=== PATIENT | female | born 1940 | race Caucasian/White ===

== ENCOUNTER 2024-08-13 10:31 | Inpatient (IN) | payer OTHER ==
[2024-08-13] MEDS ORDERED: ACETAMINOPHEN INJECTION 100 ML ONE (11:40)
[2024-08-13] MEDS: ACETAMINOPHEN 1000 MG/100 ML BAG IVPB ONE (11:52)
[2024-08-13] MEDS ORDERED: HALOPERIDOL LACTATE 5 MG/ML ONE (11:53)
[2024-08-13] MEDS: HALOPERIDOL LACTATE 5 MG/ML IM ONE ×2 (11:59→14:46)
[2024-08-13 12:03] LABS: HEMATOCRIT 39.6 % (32.4-45.2); HEMOGLOBIN 12.3 G/dL (10.7-15.3); MCHC 31.2 g/dl (32.0-36.0); MEAN CELL VOLUME 89.9 fl (80-96); MEAN PLT VOLUME 8.4 fl (7.5-11.1); PLATELET COUNT 360.8 10^3/uL (134-434); RDW 18.9 % (11.6-15.6); WHITE BLOOD COUNT 11.8 10^3/uL (4.0-10.8)
[2024-08-13] MEDS: SODIUM CHLORIDE 0.9% 1000 ML INFUS.BAG IV ONE (12:39)
[2024-08-13] MEDS ORDERED: MIDAZOLAM HCL 2 MG/2 ML SINGLE DOSE VIAL ONE (13:40)
[2024-08-13 13:44] LABS: INR 0.9 (0.83-1.09); PROTHROMBIN TIME (PATIENT) 10.3 SEC (9.7-13.0)
[2024-08-13 13:51] LABS: ACTIVATED PTT 31.2 SECONDS (25.2-36.5)
[2024-08-13 13:52] LABS: VENOUS BASE EXCESS 1.8 mmol/L (-2-2); VENOUS O2 SATURATION 75.9 % (70-80); VENOUS PCO2 47.3 mmHg (38-52); VENOUS PH 7.381 (7.310-7.410)
[2024-08-13 13:54] LABS: ALBUMIN 4.2 g/dl (3.4-5.0); BILIRUBIN,TOTAL 0.9 mg/dl (0.2-1); CALCIUM 9.1 mg/dl (8.5-10.1); CREATININE 0.8 mg/dl (0.6-1.3); POTASSIUM 4.4 mmol/L (3.5-5.1); TOT PROT 6.3 g/dl (6.4-8.2)
[2024-08-13] MEDS: MIDAZOLAM HCL 2 MG/2 ML SINGLE DOSE VIAL IVPUSH ONE ×2 (14:27→14:45)
[2024-08-13] MEDS ORDERED: INSULIN REGULAR HUMAN 100 UNITS/ML *VIAL ONE (14:42)
[2024-08-13] MEDS: INSULIN REGULAR HUMAN 100 UNITS/ML *VIAL SQ ONE (14:44)
[2024-08-13 14:45] LABS: LACTIC ACID 3.4 mmol/L (0.4-2.0)
[2024-08-13] MEDS: LACTATED RINGERS SOLUTION 1000 ML INFUS.BAG IV ONE (14:45)
[2024-08-13 14:51] LABS: PLATELET ESTIMATE ADEQUATE
[2024-08-13] MEDS: MEROPENEM 2 GM in SODIUM CHLORIDE 100 ML IVPB ONE (15:00)
[2024-08-13 16:51] LABS: LACTIC ACID 4.9 mmol/L (0.4-2.0)
[2024-08-13] MEDS: SODIUM CHLORIDE 1,000 ML IV SCH (19:55)
[2024-08-13 21:00] VITALS: BMI 26.2
[2024-08-13] MEDS: MUPIROCIN 2% TOPICAL OINTMENT FOR DECOLONIZATION NS SCH (22:29)
[2024-08-13] MEDS: CHLORHEXIDINE GLUCONATE 4% CLEANSER FOR DECOLONIZATION TP SCH (22:30)
[2024-08-13] MEDS: INSULIN ASPART SLIDING SCALE (NOVOLOG) 1 VIAL SQ SCH (22:35)
[2024-08-14 07:00] LABS: BASO % 0.8 % (0-2.0); EOS % 3.5 % (0-4.5); HEMATOCRIT 30.9 % (32.4-45.2); HEMOGLOBIN 9.9 GM/dL (10.7-15.3); LYMPH % 18.4 % (8-40); MCH 28.1 pg (25.7-33.7); MEAN CELL VOLUME 87.9 fl (80-96); MEAN PLT VOLUME 7.9 fl (7.5-11.1); MONO % 8.1 % (3.8-10.2); NEUT % 69.2 % (42.8-82.8); PLATELET COUNT 305 10^3/uL (134-434); RBC 3.52 M/mm3 (3.60-5.2); RDW 19.3 % (11.6-15.6); WHITE BLOOD COUNT 10.2 K/mm3 (4.0-10.0)
[2024-08-14 07:01] LABS: INR 1.02 (0.83-1.09); PROTHROMBIN TIME (PATIENT) 11.7 SEC (9.7-13.0)
[2024-08-14 07:03] LABS: ACTIVATED PTT 30.2 SECONDS (25.2-36.5)
[2024-08-14 07:12] LABS: CHLORIDE 99 mmol/L (98-107); POTASSIUM 4.9 mmol/L (3.5-5.1); SODIUM 137 mmol/L (136-145)
[2024-08-14 07:17] LABS: CALCIUM 8.5 mg/dL (8.5-10.1)
[2024-08-14 07:18] LABS: ALBUMIN 2.8 g/dl (3.4-5.0); ANION GAP 14 mmol/L (4-13); BLOOD UREA NITROGEN 23.2 mg/dL (7-18); CO2 24 mmol/L (21-32); GLUCOSE,RANDOM 373 mg/dL (74-106)
[2024-08-14 07:21] LABS: CREATININE 0.7 mg/dL (0.55-1.3); PHOSPHOROUS 3.6 mg/dL (2.5-4.9); SGOT/AST 10 U/L (15-37); SGPT/ALT 13 U/L (13-61)
[2024-08-14 07:22] LABS: BILIRUBIN,TOTAL 0.9 mg/dL (0.2-1)
[2024-08-14 07:23] LABS: ALK PHOS 77 U/L (45-117); TOT PROT 5.1 g/dl (6.4-8.2)
[2024-08-14] MEDS: ACETAMINOPHEN 1000 MG/100 ML BAG IVPB PRN (13:23)
[2024-08-14] MEDS: INSULIN (LEVEMIR) 100 UNITS/ML UNITS SQ SCH (22:03)
[2024-08-15 07:45] LABS: HEMATOCRIT 31.4 % (32.4-45.2); MCH 27.9 pg (25.7-33.7); MEAN CELL VOLUME 87.3 fl (80-96); MEAN PLT VOLUME 7.6 fl (7.5-11.1); PLATELET COUNT 362 10^3/uL (134-434); RBC 3.59 M/mm3 (3.60-5.2); RDW 19.4 % (11.6-15.6); WHITE BLOOD COUNT 10.2 K/mm3 (4.0-10.0)
[2024-08-15 08:07] LABS: CHLORIDE 107 mmol/L (98-107); POTASSIUM 4.1 mmol/L (3.5-5.1); SODIUM 142 mmol/L (136-145)
[2024-08-15 08:16] LABS: CALCIUM 8.4 mg/dL (8.5-10.1)
[2024-08-15 08:17] LABS: ANION GAP 6 mmol/L (4-13); BLOOD UREA NITROGEN 19.4 mg/dL (7-18); CO2 29 mmol/L (21-32); MAGNESIUM 2.1 mg/dL (1.8-2.4)
[2024-08-15 08:18] LABS: ALBUMIN 2.6 g/dl (3.4-5.0)
[2024-08-15 08:20] LABS: SGPT/ALT 13 U/L (13-61)
[2024-08-15 08:21] LABS: SGOT/AST 8 U/L (15-37)
[2024-08-15 08:22] LABS: BILIRUBIN,TOTAL 0.5 mg/dL (0.2-1); PHOSPHOROUS 3.1 mg/dL (2.5-4.9)
[2024-08-15 08:23] LABS: ALK PHOS 75 U/L (45-117)
[2024-08-15 08:25] LABS: CREATININE 0.5 mg/dL (0.55-1.3)
[2024-08-15 08:43] LABS: GLUCOSE,RANDOM 26 mg/dL (74-106)
[2024-08-15] MEDS ORDERED: DEXTROSE 50%-WATER 25 GM/50 ML DISP.SYRIN ONE (08:47)
[2024-08-15] MEDS: DEXTROSE 50%-WATER - 25 GM/50 ML VIAL IVPUSH ONE (08:50)
[2024-08-15] MEDS ORDERED: INSULIN (LEVEMIR) 100 UNITS/ML UNITS SQ SCH (10:00)
[2024-08-15] MEDS ORDERED: TAMSULOSIN HCL 0.4 MG CAP PO ONE (15:46)
[2024-08-16] MEDS: INSULIN (NOVOLOG) ASPART 100 UNITS/ML 10ML VIAL SQ ONE (00:11)
[2024-08-16] MEDS ORDERED: INSULIN ASPART SLIDING SCALE (NOVOLOG) 1 VIAL SQ SCH (07:00)
[2024-08-16] MEDS: INSULIN ASPART SLIDING SCALE (NOVOLOG) 1 VIAL SQ SCH (07:15)
[2024-08-16] MEDS ORDERED: DEXTROSE 50%-WATER 25 GM/50 ML DISP.SYRIN IVPUSH PRN (08:05)
[2024-08-16] MEDS ORDERED: FUROSEMIDE 40 MG TABLET (FP) PO SCH (10:00)
[2024-08-16] MEDS: INSULIN (LEVEMIR) 100 UNITS/ML UNITS SQ SCH ×2 (10:26→23:01)
[2024-08-16] MEDS: FUROSEMIDE 40 MG TABLET (FP) PO SCH (10:26)
[2024-08-16] MEDS ORDERED: ARTIFICIAL TEARS OPHTHALMIC DROPS OU PRN (17:18)
[2024-08-16] MEDS: LORazepam 2 MG/ML SDV VIAL IM ONE (19:28)
[2024-08-16] MEDS ORDERED: ATORVASTATIN CA 40 MG TABLET (FP) PO SCH (22:00)
[2024-08-16] MEDS: METOPROLOL TARTRATE 25 MG TABLET (FP) PO SCH (23:03)
[2024-08-16] MEDS: ATORVASTATIN CA 40 MG TABLET (FP) PO SCH (23:05)
[2024-08-17 13:37] LABS: BASO % 0.6 % (0-2.0); EOS % 4.2 % (0-4.5); HEMATOCRIT 35.9 % (32.4-45.2); HEMOGLOBIN 11.5 GM/dL (10.7-15.3); LYMPH % 24.7 % (8-40); MCH 27.8 pg (25.7-33.7); MEAN CELL VOLUME 86.9 fl (80-96); MEAN PLT VOLUME 7.4 fl (7.5-11.1); MONO % 6.2 % (3.8-10.2); NEUT % 64.3 % (42.8-82.8); PLATELET COUNT 345 10^3/uL (134-434); RBC 4.13 M/mm3 (3.60-5.2); RDW 18.9 % (11.6-15.6)
[2024-08-17 13:55] LABS: POTASSIUM 4.1 mmol/L (3.5-5.1)
[2024-08-17 13:59] LABS: CALCIUM 8.6 mg/dL (8.5-10.1)
[2024-08-17 14:00] LABS: ALBUMIN 2.9 g/dl (3.4-5.0); BLOOD UREA NITROGEN 16.8 mg/dL (7-18)
[2024-08-17 14:03] LABS: CREATININE 0.6 mg/dL (0.55-1.3)
[2024-08-17 14:05] LABS: BILIRUBIN,TOTAL 0.6 mg/dL (0.2-1); TOT PROT 5.7 g/dl (6.4-8.2)
[2024-08-18 09:00] LABS: BASO % 0.6 % (0-2.0); EOS % 6.3 % (0-4.5); HEMOGLOBIN 10.8 GM/dL (10.7-15.3); LYMPH % 26.1 % (8-40); MCH 27.7 pg (25.7-33.7); MCHC 31.8 g/dl (32.0-36.0); MEAN PLT VOLUME 7.5 fl (7.5-11.1); MONO % 7.4 % (3.8-10.2); NEUT % 59.6 % (42.8-82.8); PLATELET COUNT 314 10^3/uL (134-434); RBC 3.91 M/mm3 (3.60-5.2); RDW 19.2 % (11.6-15.6); WHITE BLOOD COUNT 8.2 K/mm3 (4.0-10.0)
[2024-08-18 09:20] LABS: POTASSIUM 3.7 mmol/L (3.5-5.1)
[2024-08-18 09:22] LABS: ALBUMIN 2.6 g/dl (3.4-5.0); BLOOD UREA NITROGEN 26.8 mg/dL (7-18); CALCIUM 8.2 mg/dL (8.5-10.1); MAGNESIUM 2.2 mg/dL (1.8-2.4)
[2024-08-18 09:26] LABS: CREATININE 0.6 mg/dL (0.55-1.3)
[2024-08-18 09:27] LABS: BILIRUBIN,TOTAL 0.4 mg/dL (0.2-1); TOT PROT 5.2 g/dl (6.4-8.2)
[2024-08-18] MEDS: PANTOPRAZOLE SODIUM 40 MG VIAL IVPUSH ONE (13:00)
[2024-08-18] MEDS: ACETAMINOPHEN 1000 MG/100 ML BAG IVPB ONE (13:00)
[2024-08-18] MEDS: MINERAL OIL ENEMA 133 ML ENEMA RC ONE (15:25)
[2024-08-18] MEDS: POLYETHYLENE GLYCOL (HEALTHYLAX) 3350 17 GM PACKET PO SCH (15:26)
[2024-08-18] MEDS: ACETAMINOPHEN 1000 MG/100 ML BAG IVPB PRN (22:44)
[2024-08-19 02:04] LABS: EPI CELLS 10 /uL (0-25.1); HYALINE CASTS 0 /uL (0-3.1); URINE APPEARANCE CLOUDY; URINE BACTERIA 120 /uL (0-1359); URINE BILIRUBIN NEGATIVE (NEGATIVE); URINE GLUCOSE (UA) 2+ (NEGATIVE); URINE KETONE TRACE (NEGATIVE); URINE LEUK ESTERASE 1+ (NEGATIVE); URINE NITRITE NEGATIVE (NEGATIVE); URINE PROTEIN 2+ (NEGATIVE); URINE UROBILINOGEN 0.2 mg/dL (0.2-1.0); URINE WBC 1283 /uL (0-25.8)
[2024-08-19 03:26] LABS: URINE RBC 28.9 /uL (0-23.9)
[2024-08-19 03:27] LABS: YEAST PRESENT (NEGATIVE)
[2024-08-19 03:32] LABS: URINE COLOR 23.9
[2024-08-19 08:39] LABS: EOS % 7.8 % (0-4.5); HEMATOCRIT 33.9 % (32.4-45.2); HEMOGLOBIN 10.9 GM/dL (10.7-15.3); LYMPH % 21.7 % (8-40); MCH 28.1 pg (25.7-33.7); MEAN CELL VOLUME 87.8 fl (80-96); MEAN PLT VOLUME 7.3 fl (7.5-11.1); MONO % 5.9 % (3.8-10.2); NEUT % 63.6 % (42.8-82.8); PLATELET COUNT 294 10^3/uL (134-434); RBC 3.87 M/mm3 (3.60-5.2); RDW 19.2 % (11.6-15.6); WHITE BLOOD COUNT 7.3 K/mm3 (4.0-10.0)
[2024-08-19 09:13] LABS: CALCIUM 8.7 mg/dL (8.5-10.1)
[2024-08-19 09:14] LABS: ALBUMIN 2.7 g/dl (3.4-5.0); BLOOD UREA NITROGEN 26.5 mg/dL (7-18); MAGNESIUM 2.4 mg/dL (1.8-2.4)
[2024-08-19 09:17] LABS: CREATININE 0.6 mg/dL (0.55-1.3)
[2024-08-19 09:19] LABS: BILIRUBIN,TOTAL 0.5 mg/dL (0.2-1); TOT PROT 5.3 g/dl (6.4-8.2)
[2024-08-19] MEDS: INSULIN ASPART SLIDING SCALE (NOVOLOG) 1 VIAL SQ SCH (17:13)
[2024-08-19] MEDS: MELATONIN 5 MG TABLETS PO ONE (23:49)
[2024-08-20 10:57] LABS: BASO % 1.5 % (0-2.0); EOS % 5.5 % (0-4.5); HEMATOCRIT 34.5 % (32.4-45.2); HEMOGLOBIN 11.1 GM/dL (10.7-15.3); LYMPH % 32.8 % (8-40); MCHC 32.1 g/dl (32.0-36.0); MEAN CELL VOLUME 87.4 fl (80-96); MEAN PLT VOLUME 8.1 fl (7.5-11.1); MONO % 4.5 % (3.8-10.2); NEUT % 55.7 % (42.8-82.8); PLATELET COUNT 281 10^3/uL (134-434); RBC 3.95 M/mm3 (3.60-5.2); RDW 18.7 % (11.6-15.6); WHITE BLOOD COUNT 9.7 K/mm3 (4.0-10.0)
[2024-08-20 11:06] LABS: POTASSIUM 4.9 mmol/L (3.5-5.1)
[2024-08-20 11:12] LABS: CALCIUM 8.8 mg/dL (8.5-10.1)
[2024-08-20 11:13] LABS: ALBUMIN 2.8 g/dl (3.4-5.0); BLOOD UREA NITROGEN 25.7 mg/dL (7-18); MAGNESIUM 2.3 mg/dL (1.8-2.4)
[2024-08-20 11:16] LABS: BILIRUBIN,TOTAL 0.4 mg/dL (0.2-1); CREATININE 0.8 mg/dL (0.55-1.3)
[2024-08-20 11:17] LABS: TOT PROT 5.5 g/dl (6.4-8.2)
[2024-08-20] MEDS ORDERED: INSULIN ASPART SLIDING SCALE (NOVOLOG) 1 VIAL SQ ONE (12:12)
[2024-08-20] MEDS: ACETAMINOPHEN 1000 MG/100 ML BAG IVPB ONE (12:14)
[2024-08-20] MEDS: PANTOPRAZOLE 40 MG TABLET PO ONE (17:57)
[2024-08-20] MEDS: INSULIN (LEVEMIR) 100 UNITS/ML UNITS SQ ONE (17:58)
[2024-08-20] MEDS: INSULIN ASPART SLIDING SCALE (NOVOLOG) 1 VIAL SQ SCH (17:59)
[2024-08-20] MEDS ORDERED: INSULIN (LEVEMIR) 100 UNITS/ML UNITS SQ SCH (22:00)
[2024-08-20 22:22] VITALS: RESP 18
[2024-08-21] MEDS: INSULIN (LEVEMIR) 100 UNITS/ML UNITS SQ SCH ×2 (06:33→22:57)
[2024-08-21 10:25] LABS: BASO % 0.5 % (0-2.0); EOS % 4.1 % (0-4.5); HEMATOCRIT 34.2 % (32.4-45.2); HEMOGLOBIN 10.9 GM/dL (10.7-15.3); LYMPH % 16.6 % (8-40); MCH 27.7 pg (25.7-33.7); MEAN CELL VOLUME 86.6 fl (80-96); MEAN PLT VOLUME 7.9 fl (7.5-11.1); MONO % 4.5 % (3.8-10.2); NEUT % 74.3 % (42.8-82.8); PLATELET COUNT 252 10^3/uL (134-434); RBC 3.95 M/mm3 (3.60-5.2); RDW 17.9 % (11.6-15.6); WHITE BLOOD COUNT 12.3 K/mm3 (4.0-10.0)
[2024-08-21] MEDS: PANTOPRAZOLE 40 MG TABLET PO SCH (10:41)
[2024-08-21 10:47] LABS: POTASSIUM 4.6 mmol/L (3.5-5.1)
[2024-08-21 10:49] LABS: CALCIUM 8.7 mg/dL (8.5-10.1)
[2024-08-21] MEDS: INSULIN ASPART SLIDING SCALE (NOVOLOG) 1 VIAL SQ SCH (10:49)
[2024-08-21 10:50] LABS: ALBUMIN 2.7 g/dl (3.4-5.0); BLOOD UREA NITROGEN 28.2 mg/dL (7-18)
[2024-08-21 10:53] LABS: CREATININE 0.8 mg/dL (0.55-1.3)
[2024-08-21 10:54] LABS: BILIRUBIN,TOTAL 0.6 mg/dL (0.2-1); TOT PROT 5.3 g/dl (6.4-8.2)
[2024-08-21] MEDS ORDERED: PANTOPRAZOLE SODIUM 40 MG VIAL IVPUSH SCH (13:30)
[2024-08-21] MEDS: PANTOPRAZOLE SODIUM 40 MG VIAL IVPUSH ONE (14:34)
[2024-08-21] MEDS: PANTOPRAZOLE SODIUM 40 MG in SODIUM CHLORIDE 100 ML IVPB ONE (16:28)
[2024-08-21 19:06] LABS: IG A QN SERUM. 189 mg/dL (64-422)
[2024-08-21] MEDS ORDERED: ACETAMINOPHEN 1000 MG/100 ML BAG IVPB PRN (19:12)
[2024-08-21] MEDS: ACETAMINOPHEN 1000 MG/100 ML BAG IVPB ONE (20:06)
[2024-08-21 23:13] VITALS: BP 107/55; PULSE 80; TEMP 98.4
== END 2024-08-21 23:45 | DRG 56 ==
LOC: FER 10:31 → JICU 18:03 → J8W 08-15 21:20
PROVIDERS: ADMIT Internal Medicine Pulmonary Disease; ATTEND Nurse Practitioner Family
DX: G30.9 Alzheimer's disease, unspecified (principal); I60.8 Other nontraumatic subarachnoid hemorrhage; F02.80 Dementia in other diseases classified elsewhere, unspecified severity, without behavioral disturbance, psychotic disturbance, mood disturbance, and anxiety; E11.65 Type 2 diabetes mellitus with hyperglycemia; E11.649 Type 2 diabetes mellitus with hypoglycemia without coma; K56.41 Fecal impaction; I10 Essential (primary) hypertension
CPT/HCPCS: 0241U-QW; 36415; 70450-TC; 70496-TC; 71045-TC-FY; 74177-TC; 80053; 81003; 81015; 82010; 82607; 82728; 82746; 82784; 82803; 82947; 82962; 83036; 83540; 83550; 83605; 83690; 83735; 84100; 84155; 84165; 84436; 84443; 84484; 85025; 85027; 85045; 85610; 85730; 86140; 86334; 86850; 86900; 86901; 87040; 87086; 87635; 93005; 97116-GP; 97161-GP; 99285-25; J0131; Q9967